=== PATIENT | male | born 1955 ===

== ENCOUNTER 2018-01-29 00:48 | Day surgery (SDC) | payer BC ==
[~2018-01-29] VITALS: Wt 80.0 kg
[~2018-01-29 00:48] MED LIST: ASPI81CH PO; LISI5 PO; METO25ER PO; SIMV40 PO
[2018-01-29] MEDS ORDERED: CLOP75 PO (09:51)
== END 2018-01-29 14:16 | disposition home or self-care (01) ==
LOC: MHTC 00:48
PROC: B2111ZZ Fluoroscopy of Multiple Coronary Arteries using Low Osmolar Contrast (ICD-10-PCS; principal; 2018-01-29)
PROC: 4A023N7 Measurement of Cardiac Sampling and Pressure, Left Heart, Percutaneous Approach (ICD-10-PCS; principal; 2018-01-29)
PROC: 027035Z Dilation of Coronary Artery, One Artery with Two Drug-eluting Intraluminal Devices, Percutaneous Approach (ICD-10-PCS; principal; 2018-01-29)
PROC: B240ZZ3 Ultrasonography of Single Coronary Artery, Intravascular (ICD-10-PCS; principal; 2018-01-29)
DX: I25.118 Atherosclerotic heart disease of native coronary artery with other forms of angina pectoris (principal); I10 Essential (primary) hypertension; E78.5 Hyperlipidemia, unspecified; Z72.0 Tobacco use; E66.9 Obesity, unspecified; Z68.31 Body mass index [BMI] 31.0-31.9, adult
CPT/HCPCS: 85347; 92978; 93458; 99152; 99153; C1725; C1753; C1769; C1874; C1894; C9600; J1644; J2250; J3010; J7030; Q9967

== ENCOUNTER 2023-04-07 00:22 | Inpatient (IN) | payer OTHER, MEDICARE ==
[~2023-04-07] VITALS: Ht 160 cm; Wt 79.4 kg
[2023-04-07] VITALS (17 sets, daily range): BP systolic 96–148; BP diastolic 65–89
[~2023-04-07 00:22] MED LIST changes: +CLOP75 PO
[2023-04-07 01:19] LABS: Albumin, Blood 3.7 g/dL (3.4-5.0); Albumin/Globulin Ratio 0.9 (0.8-1.8); Bilirubin, Total 0.7 mg/dL (0.1-1.0); Bun/Creatinine Ratio 16.4 (12.0-20.0); Calcium, Blood 8.6 mg/dL (8.5-10.1); Creatinine, Blood 0.91 mg/dL (0.60-1.20); Globulin, Blood 4.2 g/dL (2.2-4.0); Potassium, Blood 3.6 mmol/L (3.5-5.5); Total Protein, Blood 7.9 g/dL (6.4-8.2)
[2023-04-07 01:20] LABS: BASOPHILS ABSOLUTE AUTO 0.05 K/mm3 (0.00-0.23); BASOPHILS PERCENT AUTO 0 % (0-2); EOSINOPHILS ABSOLUTE AUTO 0.01 K/mm3 (0.00-0.68); EOSINOPHILS PERCENT AUTO 0 % (0-6); Hematocrit 45.8 % (37.0-53.0); Hemoglobin 16.1 g/dL (13.5-17.5); IMMATURE GRAN ABSOLUTE AUTO 0.15 K/mm3 (0.00-0.10); IMMATURE GRAN PERCENT AUTO 1 % (0-1); LYMPHOCYTES ABSOLUTE AUTO 2.24 K/mm3 (0.84-5.20); LYMPHOCYTES PERCENT AUTO 14 % (21-46); MONOCYTES ABSOLUTE AUTO 1.41 K/mm3 (0.16-1.47); MONOCYTES PERCENT AUTO 9 % (4-13); Mean Corpuscular HGB 30.6 pg (26.0-34.0); Mean Corpuscular HGB Conc 35.2 g/dL (31.5-36.5); Mean Corpuscular Volume 87 fL (80-100); NEUTROPHILS ABSOLUTE AUTO 12.51 K/mm3 (1.96-9.15); NEUTROPHILS PERCENT AUTO 76 % (41-73); RDW Standard Deviation 40.6 fL (35.1-46.3); Red Blood Cell Count 5.27 M/mm3 (4.30-5.90); White Blood Cell Count 16.37 K/mm3 (4.00-11.30)
[2023-04-07 01:30] LABS: Mean Platelet Volume 9.9 fL (9.1-12.4)
[2023-04-07 01:38] LABS: Platelet Count 171 K/mm3 (150-400)
[2023-04-07 02:32] LABS: Source, Urine Clean Catch
[2023-04-07 02:53] LABS: Bilirubin, Urine Neg (Neg); Blood, Urine 5+ (Neg); Glucose Qualitative, Urine Neg (Neg); Ketones, Urine 3+ (Neg); Leukocyte Esterase, Urine Neg (Neg); Nitrite, Urine Neg (Neg); Protein, Urine 2+ (Neg); Urobilinogen, Urine NORM (Normal)
[2023-04-07 03:02] LABS: Appearance, Urine Clear (Clear); Color, Urine Yellow (P-Yellow)
[2023-04-07 03:03] LABS: Bacteria Rare /hpf; Squamous Epithelial Cells Not Seen /hpf (Few); White Blood Cells, Urine 0-2 /hpf (0-5)
[2023-04-07 06:23] LABS: International Normalized Ratio 1.06; Prothrombin Time Results 11.1 Sec (9.7-11.5)
[2023-04-07] MEDS ORDERED: ONDA4ODT SL (08:49)
[2023-04-07] MEDS ORDERED: CLIN150 PO (11:32)
[2023-04-07] MEDS ORDERED: AMLO5 PO (11:32)
--- NOTE | 2023-04-07 14:29 | NUR ---
04/07/23 1429 Camille Henderson PT ON SCHEDULED ANTIBIOTICS AND RECIEVED PRIOR TO ARRIVAL TO OR.
--- NOTE | 2023-04-07 15:38 | NUR ---
ORIENTED TO PLACE PORSCHE AND REASON HE IS HERE WHEN HE WAKES UP
[2023-04-07] MEDS ORDERED: ROSUVASTATIN CA40 MG PO (18:53)
--- NOTE | 2023-04-07 19:55 | NUR ---
SHIFT SUMMARY PATIENT MEDICATED FOR PAIN PRIOR TO SURGERY, HE IS ON BEDREST. AWARE OF LIMITATIONS. PATIENT LEFT UNIT AT 1330 FOR SURGERY. AND UPON RETURNING, HE DENIES PAIN INITIALLY, THEN STATES 2-4/10 WITH MOVEMENT, DECLINES PAIN MEDICATION OFFERED, CONTINUES TO REQUIRE 3LPM NASAL CANULA POST OP, MAY WEAN THIS EVENING. PATIENT WITH SLIGHT NAUSEA THIS EVENING AFTER BROTH. BED IN LOW POSITION, CALL LIGHT IN REACH. PATIENT CALLS APPROPRIATELY.
[2023-04-08 00:22] VITALS: BP 132/79
--- NOTE | 2023-04-08 03:34 | NUR ---
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 POST OP LAP APPY DONE YESTERDAY ON DAY SHIFT. ABD INCISIONS CDI. BOWEL SOUNDS WNL PER AUSCULTATION. IVF AND ANTIBIOTICS INFUSING. PAIN MEDS ADMIN PER MD ORDERS - SEE MAR FOR DETAILS. HAS BEEN RESTING QUIETLY WITH FEW INTERRUPTIONS. HOB ELEVATED FOR COMFORT. RAILS P X 3, CALL LIGHT IN REACH FOR SAFETY. WILL CONTINUE TO MONITOR
[2023-04-08 05:11] VITALS: BP 121/82
[2023-04-08 05:56] LABS: BASOPHILS ABSOLUTE AUTO 0.06 K/mm3 (0.00-0.23); BASOPHILS PERCENT AUTO 0 % (0-2); EOSINOPHILS ABSOLUTE AUTO 0.04 K/mm3 (0.00-0.68); EOSINOPHILS PERCENT AUTO 0 % (0-6); Hematocrit 40.3 % (37.0-53.0); Hemoglobin 13.4 g/dL (13.5-17.5); IMMATURE GRAN ABSOLUTE AUTO 0.17 K/mm3 (0.00-0.10); IMMATURE GRAN PERCENT AUTO 1 % (0-1); LYMPHOCYTES ABSOLUTE AUTO 1.09 K/mm3 (0.84-5.20); LYMPHOCYTES PERCENT AUTO 6 % (21-46); MONOCYTES ABSOLUTE AUTO 1.27 K/mm3 (0.16-1.47); MONOCYTES PERCENT AUTO 7 % (4-13); Mean Corpuscular HGB 30.2 pg (26.0-34.0); Mean Corpuscular HGB Conc 33.3 g/dL (31.5-36.5); Mean Corpuscular Volume 91 fL (80-100); NEUTROPHILS ABSOLUTE AUTO 15.31 K/mm3 (1.96-9.15); NEUTROPHILS PERCENT AUTO 85 % (41-73); Platelet Count 141 K/mm3 (150-400); RDW Coefficient Variation 13.2 % (11.7-14.2); RDW Standard Deviation 44.7 fL (35.1-46.3); Red Blood Cell Count 4.44 M/mm3 (4.30-5.90); White Blood Cell Count 17.94 K/mm3 (4.00-11.30)
[2023-04-08 06:16] LABS: Albumin, Blood 2.6 g/dL (3.4-5.0); Albumin/Globulin Ratio 0.6 (0.8-1.8); Bilirubin, Total 0.9 mg/dL (0.1-1.0); Bun/Creatinine Ratio 21.4 (12.0-20.0); Calcium, Blood 8.1 mg/dL (8.5-10.1); Creatinine, Blood 1.26 mg/dL (0.60-1.20); Globulin, Blood 4.2 g/dL (2.2-4.0); Potassium, Blood 3.9 mmol/L (3.5-5.5); Total Protein, Blood 6.8 g/dL (6.4-8.2)
[2023-04-08 07:53] VITALS: BP 123/72
[2023-04-08 11:04] VITALS: BP 105/66
[2023-04-08 15:33] VITALS: BP 107/70
--- NOTE | 2023-04-08 19:29 | NUR ---
SHIFT SUMMARY PATIENT WITH NO ACUTE EVENTS TODAY, MEDICATED FOR PAIN PER EMAR, TORADOL HELPING MOSTLY, TOLERATING FULL LIQUIDS THIS EVENING. BED IN LOW POSITION, CALL LIGHT IN REACH. PATIENT CALLS APPROPRIATLY.
[2023-04-08 19:59] VITALS: BP 97/63
[2023-04-09 04:45] LABS: Hemoglobin 12.4 g/dL (13.5-17.5); Mean Corpuscular HGB 30.3 pg (26.0-34.0); Mean Corpuscular HGB Conc 33.5 g/dL (31.5-36.5); Mean Corpuscular Volume 91 fL (80-100); Mean Platelet Volume 10.3 fL (9.1-12.4); Platelet Count 135 K/mm3 (150-400); RDW Coefficient Variation 13.3 % (11.7-14.2); RDW Standard Deviation 44.4 fL (35.1-46.3); Red Blood Cell Count 4.09 M/mm3 (4.30-5.90); White Blood Cell Count 14.43 K/mm3 (4.00-11.30)
[2023-04-09 05:05] VITALS: BP 115/71
[2023-04-09 06:12] LABS: Bun/Creatinine Ratio 24.6 (12.0-20.0); Calcium, Blood 8.1 mg/dL (8.5-10.1); Creatinine, Blood 1.22 mg/dL (0.60-1.20); Potassium, Blood 3.6 mmol/L (3.5-5.5)
--- NOTE | 2023-04-09 07:29 | NUR ---
Rn summary: Patient was able to sleep on and off between IV ABX and cares. Pt using the urinal, urine less dark. IVABX as ordered. Pt refusing pain meds. Education on needing to treat small pain with small meds to keep pain in control so he can move around. Pt did ambulate to bathroom with walker for stability. He states no pain when walking but has significant pain with cough. Pt hopes to be discharged today. IV to left hand removed due to pain at site. Call light in reach.
[2023-04-09] MEDS ORDERED: HYDR1TAB94 PO (12:34)
[2023-04-09] MEDS ORDERED: AMOCLA875 PO (12:35)
[2023-04-09] MEDS ORDERED: VISBIOME 112.51 EACH PO (12:35)
[2023-04-09] MEDS ORDERED: LEVFLO500 PO (14:16)
[2023-04-09] MEDS ORDERED: FLAGYL500 M1 PO (14:16)
[2023-04-09] MEDS ORDERED: PROC5 PO (14:17)
--- NOTE | 2023-04-09 14:48 | NUR ---
RN NOTE MR PUCKETT IS A&OX4. C/O ABDOMINAL PAIN AFTER COUGHING. NORCO ALLEVIATED PAIN. UP AMBULATORY, STEADY GAIT. +BM. MR PUCKETT VERBALISED UNDERSTANDING OF WRITTEN AND VERBAL DISCHARGE INSTRUCTIONS. AWAITING RIDE HOME. TELEMETRY ON - NO CALLS FROM [employer].
--- NOTE | 2023-04-09 15:38 | NUR ---
PIV REMOVED INTACT. TELEMETRY REMOVED. PT DRESSED AND DISCHARGED VIA W/C TO MEET HIS RIDE AT 1530HRS. HE DENIED ANY PAIN OR CONCERNS AT TIME OF DISCHARGE.
== END 2023-04-09 15:34 | disposition home or self-care (01) | DRG 854 ==
LOC: ER 00:22 → SURS 05:53 → MEDS 05:53 → ENPENDDIS 04-09 11:49 → MEDS 04-09 15:34
PROVIDERS: Emergency Medicine; Internal Medicine; Surgery; ADMIT Internal Medicine
PROC: 3E03329 Introduction of Other Anti-infective into Peripheral Vein, Percutaneous Approach (ICD-10-PCS; 2023-04-07)
PROC: 0DTJ4ZZ Resection of Appendix, Percutaneous Endoscopic Approach (ICD-10-PCS; principal; 2023-04-07 14:00)
DX: A41.9 Sepsis, unspecified organism (principal); K35.201 Acute appendicitis with generalized peritonitis, with perforation, without abscess; I25.10 Atherosclerotic heart disease of native coronary artery without angina pectoris; I10 Essential (primary) hypertension; F17.210 Nicotine dependence, cigarettes, uncomplicated; Z95.5 Presence of coronary angioplasty implant and graft; Z79.02 Long term (current) use of antithrombotics/antiplatelets; Z79.82 Long term (current) use of aspirin
CPT/HCPCS: 36415; 74177; 80048; 80053; 81001; 83690; 83880; 85025; 85027; 85610; 86850; 86900; 86901; 88304; 93005; 93010; 94760; 96361; 96365; 96375; 96376; 99285-25; A9270; J1100; J1170; J1885; J2250; J2405; J2543; J2704; J2710; J3010; J7030; J7120; Q9967